=== PATIENT | female | born 1945 | race Caucasian/White ===

== ENCOUNTER 2016-04-26 14:00 | Emergency (ER) | payer MEDICARE, OTHER ==
[~2016-04-26] VITALS: Ht 152.4 cm; Wt 81.1 kg
[~2016-04-26 14:00] MED LIST: ALBU8.5H3 INH; AMLO10TA2 PO; BECL8.7A5 INH; BENA40TA2 PO; ERGO500017 PO; FLUT10.6 INH; FLUT12HF IH; HYDR25TA6 PO; OMEP-110 PO; ONDA4TAB10 PO; SIMV40TA3 PO
[2016-04-26] MEDS ORDERED: NITROGLYCERIN SINGLE TAB 0.4 MG SL ONE (15:27)
[2016-04-26] MEDS ORDERED: SODIUM CHLORIDE FLUSH 10ML SYR IVF ONE (15:30)
[2016-04-26] MEDS ORDERED: MORPHINE SULFATE 4 MG/ML, 1ML IVPush PRN (15:30)
[2016-04-26] MEDS: NITROGLYCERIN SINGLE TAB 0.4 MG SL PRN ×2 (15:35→15:40)
[2016-04-26 16:00] LABS: HEMOGLOBIN 10.9 g/dL (11.7-16.4)
[2016-04-26 16:06] LABS: ASPARTATE AMINO TRANSFERASE 14 U/L (15-37); BLOOD UREA NITROGEN 17 mg/dL (7-18)
[2016-04-26 16:12] LABS: IS PT STATUS REG ER OR PRE ER? YES
[2016-04-26] MEDS ORDERED: MORPHINE SULFATE 4 MG/ML, 1ML ONE (16:33)
[2016-04-26 17:01] VITALS: BP 106/59
== END 2016-04-26 17:03 | disposition home or self-care (01) ==
LOC: ED 15:36
DX: M25.511 Pain in right shoulder (principal); E78.5 Hyperlipidemia, unspecified; K21.9 Gastro-esophageal reflux disease without esophagitis; Z90.49 Acquired absence of other specified parts of digestive tract; Z98.51 Tubal ligation status
CPT/HCPCS: 36415; 71010; 80053; 83880; 84484; 85025; 85610; 85730; 93005; 96374

== ENCOUNTER 2016-06-24 13:19 | Inpatient (IN) | payer OTHER ==
[~2016-06-24] VITALS: Ht 152.4 cm; Wt 83.6 kg
[~2016-06-24 13:19] MED LIST changes: +ASCO10004 PO; +CYAN100074 PO
[2016-06-24 14:00] VITALS: BP 113/69
[2016-06-24] MEDS ORDERED: ENOXAPARIN 40 MG/0.4 ML SQ SCH (14:00)
[2016-06-24] MEDS ORDERED: ONDANSETRON 2MG/ML, 2ML IVPush PRN (14:00)
[2016-06-24] MEDS ORDERED: DOCUSATE 100 MG CAPSULE PO PRN (14:00)
[2016-06-24] MEDS ORDERED: PLEASE ENTER HEIGHT AND WEIGHT MC SCH (14:30)
[2016-06-24] MEDS ORDERED: ERGOCALCIFEROL 50,000 UNIT CAPSULE PO ONE (14:30)
[2016-06-24 14:37] LABS: BLOOD UREA NITROGEN 13 mg/dL (7-18)
[2016-06-24 14:48] LABS: ASPARTATE AMINO TRANSFERASE 13 U/L (15-37); TOTAL IRON BINDING CAPACITY 433 mcg/dL (250-450)
[2016-06-24 15:10] LABS: DIFF TOTAL CELLS COUNTED 100 CELL DIFF
[2016-06-24 15:12] LABS: ANISOCYTOSIS 1+; MICROCYTOSIS 1+; VERIFY COUNTS? YES
[2016-06-24 15:13] LABS: HYPOCHROMIA 1+; OVALOCYTES 1+; POLYCHROMASIA 1+
[2016-06-24] MEDS ORDERED: ALBUTEROL SULFATE 2.5 MG/3 ML HHN PRN (16:00)
[2016-06-24] MEDS: FERROUS SULFATE 325 MG TABLET PO SCH (17:40)
[2016-06-24 18:33] LABS: PT 1:1 MIX 10.7 Seconds (9.6-11.5)
[2016-06-24 20:10] VITALS: BP 109/72
[2016-06-24] MEDS: DESMOPRESSIN 24 MCG in SODIUM CHLORIDE 0.9% 50 ML IV SCH (20:25)
[2016-06-24] MEDS: SIMVASTATIN 40 MG TABLET PO SCH (20:26)
[2016-06-24] MEDS: ACETAMINOPHEN 325 MG TABLET PO PRN (20:27)
[2016-06-24] MEDS ORDERED: BENAZEPRIL 20 MG TABLET PO SCH (21:00)
[2016-06-24] MEDS ORDERED: TEMPLATE NON-FORMULARY MED. (Fluticasone Propionate (Flovent Hfa 44 Mcg/Inh) 2 PUFF) INH SCH (21:00)
[2016-06-24] MEDS ORDERED: AMLODIPINE 5 MG TABLET PO SCH (21:00)
[2016-06-25 01:44] VITALS: BP 102/64
[2016-06-25 06:01] LABS: BLOOD UREA NITROGEN 17 mg/dL (7-18)
[2016-06-25 07:15] VITALS: BP 109/68
[2016-06-25] MEDS: FERROUS SULFATE 325 MG TABLET PO SCH ×2 (08:30→17:59)
[2016-06-25] MEDS: OMEPRAZOLE 20 MG CAPSULE.DR PO SCH (08:30)
[2016-06-25] MEDS: CYANOCOBALAMIN 1,000 MCG TABLET PO SCH (08:30)
[2016-06-25] MEDS: ASCORBIC ACID 500 MG TABLET PO SCH (08:31)
[2016-06-25] MEDS: FLUTICASONE/VILANTEROL 100-25MCG/INH INH SCH (08:38)
[2016-06-25] MEDS ORDERED: HYDROCHLOROTHIAZIDE 25 MG TABLET PO SCH (09:00)
[2016-06-25] MEDS ORDERED: FLUTICASONE FUROATE 200MCG/INH INH SCH (09:00)
[2016-06-25 13:47] VITALS: BP 130/73
[2016-06-25] MEDS: CYCLOPHOSPHAMIDE 50 MG CAP PO SCH (18:03)
[2016-06-25] MEDS: BENAZEPRIL 20 MG TABLET PO SCH (18:08)
[2016-06-25] MEDS: AMLODIPINE 5 MG TABLET PO SCH (21:16)
[2016-06-25] MEDS: SIMVASTATIN 40 MG TABLET PO SCH (21:16)
[2016-06-25 21:21] VITALS: BP 123/74
[2016-06-25] MEDS: DESMOPRESSIN 24 MCG in SODIUM CHLORIDE 0.9% 50 ML IV SCH (21:33)
[2016-06-26 01:41] VITALS: BP 96/62
[2016-06-26 07:15] VITALS: BP 117/70
[2016-06-26] MEDS: CYANOCOBALAMIN 1,000 MCG TABLET PO SCH (08:09)
[2016-06-26] MEDS: OMEPRAZOLE 20 MG CAPSULE.DR PO SCH (08:09)
[2016-06-26] MEDS: FERROUS SULFATE 325 MG TABLET PO SCH ×2 (08:09→17:29)
[2016-06-26] MEDS: FLUTICASONE/VILANTEROL 100-25MCG/INH INH SCH (08:11)
[2016-06-26] MEDS: ASCORBIC ACID 500 MG TABLET PO SCH (08:11)
[2016-06-26] MEDS: ALUMINUM/MAG/SIMETHICONE 30 ML UDC PO PRN (12:49)
[2016-06-26 14:23] VITALS: BP 132/72
[2016-06-26] MEDS: CYCLOPHOSPHAMIDE 50 MG CAP PO SCH (17:29)
[2016-06-26 18:35] VITALS: BP 120/74
[2016-06-26 20:07] VITALS: BP 131/72
[2016-06-26] MEDS: DESMOPRESSIN 24 MCG in SODIUM CHLORIDE 0.9% 50 ML IV SCH (20:08)
[2016-06-26] MEDS: BENAZEPRIL 20 MG TABLET PO SCH (20:08)
[2016-06-26] MEDS: SIMVASTATIN 40 MG TABLET PO SCH (20:09)
[2016-06-26] MEDS: AMLODIPINE 5 MG TABLET PO SCH (20:09)
[2016-06-27 02:39] VITALS: BP 114/71
[2016-06-27] MEDS: ACETAMINOPHEN 325 MG TABLET PO PRN ×2 (05:42→15:34)
[2016-06-27 07:53] VITALS: BP 124/75
[2016-06-27] MEDS: OMEPRAZOLE 20 MG CAPSULE.DR PO SCH (08:25)
[2016-06-27] MEDS: FERROUS SULFATE 325 MG TABLET PO SCH ×2 (08:25→17:09)
[2016-06-27] MEDS: ASCORBIC ACID 500 MG TABLET PO SCH (08:26)
[2016-06-27] MEDS: FLUTICASONE/VILANTEROL 100-25MCG/INH INH SCH (08:26)
[2016-06-27] MEDS: CYANOCOBALAMIN 1,000 MCG TABLET PO SCH (08:26)
[2016-06-27 09:38] LABS: ANISOCYTOSIS 2+; MICROCYTOSIS 1+; OVALOCYTES 1+; POIKILOCYTOSIS 1+; POLYCHROMASIA 1+
[2016-06-27 12:06] LABS: F-VIII INH 1:1 MIX SALINE 61.3 sec (Not Estab.); F-VIII INH 1:1 NP MIX 1HR INC 43.3 sec (22.9-30.2); F-VIII INH NP 37.9 sec (22.9-30.2); F-VIII INH aPTT 47.2 sec (22.9-30.2); FACTOR VIII ACTIVITY <1 % (57-163); FACTOR VIII BETHESDA TITER 205.3 Bethesda (0.0-0.8)
[2016-06-27 12:43] VITALS: BP 138/80
[2016-06-27] MEDS ORDERED: CARISOPRODOL 350 MG TABLET PO PRN (17:00)
[2016-06-27] MEDS: CYCLOPHOSPHAMIDE 50 MG CAP PO SCH (17:09)
[2016-06-27 18:23] VITALS: BP 125/78
[2016-06-27] MEDS: BENAZEPRIL 20 MG TABLET PO SCH (20:06)
[2016-06-27] MEDS: SIMVASTATIN 40 MG TABLET PO SCH (20:30)
[2016-06-27] MEDS: AMLODIPINE 5 MG TABLET PO SCH (20:30)
[2016-06-27] MEDS: DESMOPRESSIN 24 MCG in SODIUM CHLORIDE 0.9% 50 ML IV SCH (20:30)
[2016-06-27] MEDS ORDERED: HYDROmorphone 1 MG/ML, 1ML IV ONE (23:00)
[2016-06-28] VITALS (16 sets, daily range): BP systolic 104–152; BP diastolic 67–81
[2016-06-28] MEDS ORDERED: HYDROcodone/APAP 5/325 TABLET PO PRN ×2 (02:30→08:30)
[2016-06-28] MEDS: HYDROcodone/APAP 5/325 TABLET PO PRN ×2 (04:56→08:32)
[2016-06-28] MEDS: OMEPRAZOLE 20 MG CAPSULE.DR PO SCH (07:16)
[2016-06-28] MEDS: FERROUS SULFATE 325 MG TABLET PO SCH ×2 (07:16→17:26)
[2016-06-28] MEDS: FLUTICASONE/VILANTEROL 100-25MCG/INH INH SCH (09:00)
[2016-06-28 09:24] LABS: DIFF TOTAL CELLS COUNTED 100 CELL DIFF
[2016-06-28 09:26] LABS: ANISOCYTOSIS 2+; HYPOCHROMIA 1+; MICROCYTOSIS 1+; POIKILOCYTOSIS 1+; POLYCHROMASIA 1+; VERIFY COUNTS? YES
[2016-06-28] MEDS: ASCORBIC ACID 500 MG TABLET PO SCH (09:54)
[2016-06-28] MEDS: CYANOCOBALAMIN 1,000 MCG TABLET PO SCH (09:54)
[2016-06-28] MEDS: MORPHINE SULFATE 4 MG/ML, 1ML IVPush PRN ×3 (09:54→22:20)
[2016-06-28] MEDS ORDERED: ANTI INHIBITOR COAGULANT COMP IVPB ONE ×2 (11:30→20:00)
[2016-06-28] MEDS ORDERED: ACETAMINOPHEN 325 MG TABLET PO ONE (11:30)
[2016-06-28] MEDS ORDERED: FUROSEMIDE 20 MG/2 ML IVPush ONE (11:30)
[2016-06-28] MEDS ORDERED: DIPHENHYDRAMINE 50 MG/ML, 1ML IVPush ONE (11:30)
[2016-06-28 12:00] LABS: PROTIME 11.4 Seconds (9.6-11.5)
[2016-06-28] MEDS: ACETAMINOPHEN 325 MG TABLET PO PRN (16:23)
[2016-06-28] MEDS: CYCLOPHOSPHAMIDE 50 MG CAP PO SCH (17:28)
[2016-06-28] MEDS: DESMOPRESSIN 24 MCG in SODIUM CHLORIDE 0.9% 50 ML IV SCH (19:30)
[2016-06-28] MEDS: BENAZEPRIL 20 MG TABLET PO SCH (20:56)
[2016-06-28] MEDS: AMLODIPINE 5 MG TABLET PO SCH (20:56)
[2016-06-28] MEDS: SIMVASTATIN 40 MG TABLET PO SCH (20:56)
[2016-06-29 02:57] VITALS: BP 111/70
[2016-06-29] MEDS: MORPHINE SULFATE 4 MG/ML, 1ML IVPush PRN ×3 (03:39→20:33)
[2016-06-29 06:40] VITALS: BP 117/73
[2016-06-29] MEDS: FERROUS SULFATE 325 MG TABLET PO SCH ×2 (08:46→19:15)
[2016-06-29] MEDS: OMEPRAZOLE 20 MG CAPSULE.DR PO SCH (08:46)
[2016-06-29] MEDS: ASCORBIC ACID 500 MG TABLET PO SCH (08:47)
[2016-06-29] MEDS: CYANOCOBALAMIN 1,000 MCG TABLET PO SCH (08:48)
[2016-06-29] MEDS: FLUTICASONE/VILANTEROL 100-25MCG/INH INH SCH (08:50)
[2016-06-29] MEDS: ACETAMINOPHEN 325 MG TABLET PO PRN (10:48)
[2016-06-29] MEDS ORDERED: ANTI INHIBITOR COAGULANT COMP IVPB SCH (11:00)
[2016-06-29 13:06] LABS: F-VIII INH 1:1 MIX SALINE 66.2 sec (Not Estab.); F-VIII INH NP 35.7 sec (22.9-30.2); F-VIII INH aPTT 46.5 sec (22.9-30.2); FACTOR VIII ACTIVITY <1 % (57-163); FACTOR VIII BETHESDA TITER 63.6 Bethesda (0.0-0.8)
[2016-06-29 13:16] VITALS: BP 145/84
[2016-06-29] MEDS: ONDANSETRON ODT 4 MG PO PRN (15:29)
[2016-06-29] MEDS: CYCLOPHOSPHAMIDE 50 MG CAP PO SCH (17:00)
[2016-06-29 19:12] VITALS: BP 111/72
[2016-06-29] MEDS: AMLODIPINE 5 MG TABLET PO SCH (20:32)
[2016-06-29] MEDS: SIMVASTATIN 40 MG TABLET PO SCH (20:32)
[2016-06-29] MEDS: BENAZEPRIL 20 MG TABLET PO SCH (20:33)
[2016-06-29] MEDS ORDERED: ANTI INHIBITOR COAGULANT COMP IVPB ONE (22:30)
[2016-06-30 03:12] VITALS: BP 104/66
[2016-06-30 05:32] LABS: ASPARTATE AMINO TRANSFERASE 8 U/L (15-37); BLOOD UREA NITROGEN 14 mg/dL (7-18)
[2016-06-30 05:51] LABS: DIFF TOTAL CELLS COUNTED 100 CELL DIFF
[2016-06-30 05:52] LABS: VERIFY COUNTS? YES
[2016-06-30 05:53] LABS: ANISOCYTOSIS 2+; MICROCYTOSIS 1+; POLYCHROMASIA 1+
[2016-06-30 05:55] LABS: HYPOCHROMIA 1+
[2016-06-30 05:56] LABS: PROTIME 11.8 Seconds (9.6-11.5)
[2016-06-30 07:40] VITALS: BP 120/82
[2016-06-30] MEDS: MORPHINE SULFATE 4 MG/ML, 1ML IVPush PRN (08:32)
[2016-06-30] MEDS: FERROUS SULFATE 325 MG TABLET PO SCH ×2 (08:38→17:53)
[2016-06-30] MEDS: CYANOCOBALAMIN 1,000 MCG TABLET PO SCH (08:39)
[2016-06-30] MEDS: ASCORBIC ACID 500 MG TABLET PO SCH (08:39)
[2016-06-30] MEDS: FLUTICASONE/VILANTEROL 100-25MCG/INH INH SCH (08:44)
[2016-06-30] MEDS: OMEPRAZOLE 20 MG CAPSULE.DR PO SCH (08:44)
[2016-06-30 09:15] LABS: DIFF TOTAL CELLS COUNTED 100 CELL DIFF
[2016-06-30 09:23] LABS: ANISOCYTOSIS 2+; HYPOCHROMIA 1+; MICROCYTOSIS 1+; POLYCHROMASIA 1+; VERIFY COUNTS? YES
[2016-06-30] MEDS ORDERED: ANTI INHIBITOR COAGULANT COMP IVPB ONE (10:30)
[2016-06-30 12:06] LABS: F-VIII INH 1:1 MIX SALINE 63.6 sec (Not Estab.); F-VIII INH 1:1 NP MIX 1HR INC 41.5 sec (22.9-30.2); F-VIII INH NP 36.1 sec (22.9-30.2); F-VIII INH aPTT 46.2 sec (22.9-30.2); FACTOR VIII ACTIVITY <1 % (57-163); FACTOR VIII BETHESDA TITER 59.4 Bethesda (0.0-0.8)
[2016-06-30 12:06] LABS: F-VIII INH 1:1 MIX SALINE 65.6 sec (Not Estab.); F-VIII INH 1:1 NP MIX 1HR INC 41.7 sec (22.9-30.2); F-VIII INH NP 34.9 sec (22.9-30.2); F-VIII INH aPTT 44.2 sec (22.9-30.2); FACTOR VIII ACTIVITY <1 % (57-163); FACTOR VIII BETHESDA TITER 59.4 Bethesda (0.0-0.8)
[2016-06-30 13:00] VITALS: BP 124/79
[2016-06-30] MEDS: CYCLOPHOSPHAMIDE 50 MG CAP PO SCH (17:00)
[2016-06-30 19:26] VITALS: BP 120/75
[2016-06-30] MEDS: SIMVASTATIN 40 MG TABLET PO SCH (21:13)
[2016-06-30] MEDS: AMLODIPINE 5 MG TABLET PO SCH (21:13)
[2016-06-30] MEDS: BENAZEPRIL 20 MG TABLET PO SCH (21:13)
[2016-07-01] VITALS (12 sets, daily range): BP systolic 99–128; BP diastolic 60–78
[2016-07-01] MEDS: ANTI INHIBITOR COAGULANT COMP IVPB SCH ×2 (00:15→13:05)
[2016-07-01 06:14] LABS: FIBRINOGEN 216 mg/dL (200-340)
[2016-07-01 06:18] LABS: ASPARTATE AMINO TRANSFERASE 8 U/L (15-37); BLOOD UREA NITROGEN 19 mg/dL (7-18)
[2016-07-01 06:40] LABS: DIFF TOTAL CELLS COUNTED 100 CELL DIFF
[2016-07-01 06:47] LABS: ANISOCYTOSIS 2+; HYPOCHROMIA 1+; MICROCYTOSIS 1+; POLYCHROMASIA 1+; VERIFY COUNTS? YES
[2016-07-01] MEDS: FERROUS SULFATE 325 MG TABLET PO SCH ×2 (08:57→17:48)
[2016-07-01] MEDS: FLUTICASONE/VILANTEROL 100-25MCG/INH INH SCH (08:57)
[2016-07-01] MEDS: OMEPRAZOLE 20 MG CAPSULE.DR PO SCH (08:57)
[2016-07-01] MEDS: CYANOCOBALAMIN 1,000 MCG TABLET PO SCH (08:58)
[2016-07-01] MEDS: ASCORBIC ACID 500 MG TABLET PO SCH (08:58)
[2016-07-01] MEDS ORDERED: DIPHENHYDRAMINE 50 MG/ML, 1ML IVPush ONE (10:30)
[2016-07-01] MEDS ORDERED: ANTI INHIBITOR COAGULANT COMP IVPB ONE (11:30)
[2016-07-01] MEDS ORDERED: DIPHENHYDRAMINE 50 MG/ML, 1ML ONE (14:40)
[2016-07-01] MEDS: CYCLOPHOSPHAMIDE 50 MG CAP PO SCH (17:49)
[2016-07-01] MEDS: BENAZEPRIL 20 MG TABLET PO SCH (22:43)
[2016-07-01] MEDS: SIMVASTATIN 40 MG TABLET PO SCH (22:43)
[2016-07-01] MEDS: AMLODIPINE 5 MG TABLET PO SCH (22:43)
[2016-07-01] MEDS: ALUMINUM/MAG/SIMETHICONE 30 ML UDC PO PRN (23:04)
[2016-07-02] MEDS: ANTI INHIBITOR COAGULANT COMP IVPB SCH ×2 (01:25→14:29)
[2016-07-02 02:29] VITALS: BP 133/70
[2016-07-02 06:46] VITALS: BP 132/77
[2016-07-02] MEDS: HYDROcodone/APAP 5/325 TABLET PO PRN (07:42)
[2016-07-02] MEDS: OMEPRAZOLE 20 MG CAPSULE.DR PO SCH (07:42)
[2016-07-02] MEDS: FLUTICASONE/VILANTEROL 100-25MCG/INH INH SCH (09:00)
[2016-07-02] MEDS: FERROUS SULFATE 325 MG TABLET PO SCH ×2 (09:02→16:34)
[2016-07-02] MEDS: CYANOCOBALAMIN 1,000 MCG TABLET PO SCH (09:02)
[2016-07-02] MEDS: ASCORBIC ACID 500 MG TABLET PO SCH (09:03)
[2016-07-02 12:07] LABS: F-VIII INH 1:1 MIX SALINE 56.9 sec (Not Estab.); F-VIII INH 1:1 NP MIX 1HR INC 39.3 sec (22.9-30.2); F-VIII INH NP 30.4 sec (22.9-30.2); F-VIII INH aPTT 39.7 sec (22.9-30.2); FACTOR VIII BETHESDA TITER 52.3 Bethesda (0.0-0.8)
[2016-07-02 12:07] LABS: F-VIII INH 1:1 MIX SALINE 67.7 sec (Not Estab.); F-VIII INH 1:1 NP MIX 1HR INC 39.6 sec (22.9-30.2); F-VIII INH NP 31.9 sec (22.9-30.2); F-VIII INH aPTT 44.2 sec (22.9-30.2); FACTOR VIII ACTIVITY <1 % (57-163); FACTOR VIII BETHESDA TITER 60.1 Bethesda (0.0-0.8)
[2016-07-02 12:24] VITALS: BP 149/82
[2016-07-02] MEDS: CYCLOPHOSPHAMIDE 50 MG CAP PO SCH (16:30)
[2016-07-02 19:05] VITALS: BP 136/77
[2016-07-02] MEDS: AMLODIPINE 5 MG TABLET PO SCH (19:59)
[2016-07-02] MEDS: BENAZEPRIL 20 MG TABLET PO SCH (19:59)
[2016-07-02] MEDS: SIMVASTATIN 40 MG TABLET PO SCH (19:59)
[2016-07-03 01:21] VITALS: BP 138/76
[2016-07-03] MEDS: ANTI INHIBITOR COAGULANT COMP IVPB SCH ×2 (02:26→14:04)
[2016-07-03 08:05] VITALS: BP 145/79
[2016-07-03] MEDS: OMEPRAZOLE 20 MG CAPSULE.DR PO SCH (08:13)
[2016-07-03] MEDS: CYANOCOBALAMIN 1,000 MCG TABLET PO SCH (08:14)
[2016-07-03] MEDS: FERROUS SULFATE 325 MG TABLET PO SCH ×2 (08:14→17:07)
[2016-07-03] MEDS: ASCORBIC ACID 500 MG TABLET PO SCH (08:14)
[2016-07-03] MEDS: FLUTICASONE/VILANTEROL 100-25MCG/INH INH SCH (08:14)
[2016-07-03 11:06] LABS: F-VIII INH 1:1 NP MIX 1HR INC 41.6 sec (22.9-30.2); F-VIII INH NP 31.6 sec (22.9-30.2); F-VIII INH aPTT 41.8 sec (22.9-30.2)
[2016-07-03] MEDS: CYCLOPHOSPHAMIDE 50 MG CAP PO SCH (11:13)
[2016-07-03 15:49] VITALS: BP 146/84
[2016-07-03 18:48] VITALS: BP 131/77
[2016-07-03] MEDS: BENAZEPRIL 20 MG TABLET PO SCH (21:22)
[2016-07-03] MEDS: AMLODIPINE 5 MG TABLET PO SCH (21:22)
[2016-07-03] MEDS: SIMVASTATIN 40 MG TABLET PO SCH (21:22)
[2016-07-04 02:22] VITALS: BP 165/81
[2016-07-04] MEDS: ANTI INHIBITOR COAGULANT COMP IVPB SCH ×2 (02:23→14:41)
[2016-07-04 08:39] LABS: POLYCHROMASIA 1+
[2016-07-04 08:42] LABS: ANISOCYTOSIS 2+; MICROCYTOSIS 2+
[2016-07-04] MEDS: FERROUS SULFATE 325 MG TABLET PO SCH ×2 (09:19→16:39)
[2016-07-04] MEDS: FLUTICASONE/VILANTEROL 100-25MCG/INH INH SCH (09:19)
[2016-07-04] MEDS: OMEPRAZOLE 20 MG CAPSULE.DR PO SCH (09:19)
[2016-07-04] MEDS: CYANOCOBALAMIN 1,000 MCG TABLET PO SCH (09:19)
[2016-07-04] MEDS: ASCORBIC ACID 500 MG TABLET PO SCH (09:20)
[2016-07-04] MEDS: CYCLOPHOSPHAMIDE 50 MG CAP PO SCH (09:42)
[2016-07-04] MEDS ORDERED: FUROSEMIDE 40 MG TABLET PO SCH (10:00)
[2016-07-04 14:30] VITALS: BP 136/80
[2016-07-04 19:03] VITALS: BP 131/72
[2016-07-04] MEDS: AMLODIPINE 5 MG TABLET PO SCH (20:38)
[2016-07-04] MEDS: BENAZEPRIL 20 MG TABLET PO SCH (20:38)
[2016-07-04] MEDS: SIMVASTATIN 40 MG TABLET PO SCH (20:38)
[2016-07-05] MEDS ORDERED: ANTI INHIBITOR COAGULANT COMP IVPB ONE (02:30)
[2016-07-05 02:43] VITALS: BP 147/82
[2016-07-05 08:10] VITALS: BP 157/82
[2016-07-05] MEDS: HYDROcodone/APAP 5/325 TABLET PO PRN (08:26)
[2016-07-05] MEDS: FERROUS SULFATE 325 MG TABLET PO SCH ×2 (08:27→17:21)
[2016-07-05] MEDS: OMEPRAZOLE 20 MG CAPSULE.DR PO SCH (08:27)
[2016-07-05] MEDS: CYANOCOBALAMIN 1,000 MCG TABLET PO SCH (08:27)
[2016-07-05] MEDS: FLUTICASONE/VILANTEROL 100-25MCG/INH INH SCH (08:27)
[2016-07-05] MEDS: ASCORBIC ACID 500 MG TABLET PO SCH (08:28)
[2016-07-05] MEDS: CYCLOPHOSPHAMIDE 50 MG CAP PO SCH (08:29)
[2016-07-05 14:28] VITALS: BP 148/81
[2016-07-05] MEDS: ONDANSETRON ODT 4 MG PO PRN (18:15)
[2016-07-05 20:17] VITALS: BP 113/71
[2016-07-05] MEDS: BENAZEPRIL 20 MG TABLET PO SCH (20:21)
[2016-07-05] MEDS: AMLODIPINE 5 MG TABLET PO SCH (20:24)
[2016-07-05] MEDS: SIMVASTATIN 40 MG TABLET PO SCH (20:24)
[2016-07-06 03:37] VITALS: BP 117/66
[2016-07-06 03:42] LABS: FIBRINOGEN 216 mg/dL (200-340)
[2016-07-06 07:36] VITALS: BP 115/73
[2016-07-06] MEDS: OMEPRAZOLE 20 MG CAPSULE.DR PO SCH (07:41)
[2016-07-06] MEDS: FERROUS SULFATE 325 MG TABLET PO SCH ×2 (08:42→18:27)
[2016-07-06] MEDS: FLUTICASONE/VILANTEROL 100-25MCG/INH INH SCH (08:42)
[2016-07-06] MEDS: ASCORBIC ACID 500 MG TABLET PO SCH (08:42)
[2016-07-06] MEDS: CYANOCOBALAMIN 1,000 MCG TABLET PO SCH (08:43)
[2016-07-06] MEDS: CYCLOPHOSPHAMIDE 50 MG CAP PO SCH (08:46)
[2016-07-06 14:00] VITALS: BP 137/84
[2016-07-06] MEDS: AMLODIPINE 5 MG TABLET PO SCH (19:31)
[2016-07-06] MEDS: BENAZEPRIL 20 MG TABLET PO SCH (19:31)
[2016-07-06] MEDS: SIMVASTATIN 40 MG TABLET PO SCH (19:31)
[2016-07-06 19:40] VITALS: BP 136/83
[2016-07-07 02:08] VITALS: BP 134/81
[2016-07-07 06:02] LABS: FIBRINOGEN 185 mg/dL (200-340)
[2016-07-07 06:16] LABS: ASPARTATE AMINO TRANSFERASE 6 U/L (15-37); BLOOD UREA NITROGEN 20 mg/dL (7-18)
[2016-07-07 06:48] VITALS: BP 149/80
[2016-07-07] MEDS: FERROUS SULFATE 325 MG TABLET PO SCH ×2 (08:00→17:53)
[2016-07-07] MEDS: HYDROcodone/APAP 5/325 TABLET PO PRN (08:00)
[2016-07-07] MEDS: OMEPRAZOLE 20 MG CAPSULE.DR PO SCH (08:01)
[2016-07-07] MEDS: ASCORBIC ACID 500 MG TABLET PO SCH (08:01)
[2016-07-07] MEDS: CYANOCOBALAMIN 1,000 MCG TABLET PO SCH (08:01)
[2016-07-07] MEDS: FLUTICASONE/VILANTEROL 100-25MCG/INH INH SCH (08:02)
[2016-07-07] MEDS: CYCLOPHOSPHAMIDE 50 MG CAP PO SCH (08:55)
[2016-07-07 14:00] VITALS: BP 140/82
[2016-07-07 19:08] VITALS: BP 127/76
[2016-07-07] MEDS: SIMVASTATIN 40 MG TABLET PO SCH (20:02)
[2016-07-07] MEDS: BENAZEPRIL 20 MG TABLET PO SCH (20:03)
[2016-07-07] MEDS: AMLODIPINE 5 MG TABLET PO SCH (20:03)
[2016-07-08 01:15] VITALS: BP 130/81
[2016-07-08 08:01] VITALS: BP 150/79
[2016-07-08] MEDS: FLUTICASONE/VILANTEROL 100-25MCG/INH INH SCH (09:00)
[2016-07-08] MEDS: OMEPRAZOLE 20 MG CAPSULE.DR PO SCH (09:38)
[2016-07-08] MEDS: FERROUS SULFATE 325 MG TABLET PO SCH ×2 (09:39→17:44)
[2016-07-08] MEDS: CYANOCOBALAMIN 1,000 MCG TABLET PO SCH (09:39)
[2016-07-08] MEDS: ASCORBIC ACID 500 MG TABLET PO SCH (09:40)
[2016-07-08] MEDS: CYCLOPHOSPHAMIDE 50 MG CAP PO SCH (09:50)
[2016-07-08 14:29] VITALS: BP 138/82
[2016-07-08 19:10] VITALS: BP 120/81
[2016-07-08] MEDS: AMLODIPINE 5 MG TABLET PO SCH (22:00)
[2016-07-08] MEDS: SIMVASTATIN 40 MG TABLET PO SCH (22:00)
[2016-07-08] MEDS: BENAZEPRIL 20 MG TABLET PO SCH (22:01)
[2016-07-09 04:15] VITALS: BP 150/86
[2016-07-09 05:43] LABS: FIBRINOGEN 107 mg/dL (200-340)
[2016-07-09 06:50] VITALS: BP 153/82
[2016-07-09] MEDS: OMEPRAZOLE 20 MG CAPSULE.DR PO SCH (08:09)
[2016-07-09] MEDS: CYANOCOBALAMIN 1,000 MCG TABLET PO SCH (08:09)
[2016-07-09] MEDS: FERROUS SULFATE 325 MG TABLET PO SCH (08:09)
[2016-07-09] MEDS: ASCORBIC ACID 500 MG TABLET PO SCH (08:10)
[2016-07-09] MEDS: FLUTICASONE/VILANTEROL 100-25MCG/INH INH SCH (08:16)
[2016-07-09] MEDS ORDERED: CYCLOPHOSPHAMIDE 50 MG CAP PO SCH (09:00)
[2016-07-09 11:06] LABS: F-VIII INH 1:1 MIX SALINE 56.1 sec (Not Estab.); F-VIII INH 1:1 NP MIX 1HR INC 40.2 sec (22.9-30.2); F-VIII INH NP 32.3 sec (22.9-30.2); F-VIII INH aPTT 45.9 sec (22.9-30.2); FACTOR VIII BETHESDA TITER 1.9 Bethesda (0.0-0.8)
[2016-07-09 11:06] LABS: F-VIII INH 1:1 NP MIX 1HR INC 40.5 sec (22.9-30.2); F-VIII INH aPTT 41.8 sec (22.9-30.2); FACTOR VIII BETHESDA TITER 31.8 Bethesda (0.0-0.8)
[2016-07-09] MEDS ORDERED: PRED20TA PO (12:13)
[2016-07-09] MEDS ORDERED: CYCL50CA3 PO (12:13)
[2016-07-09 12:27] VITALS: BP 144/88
[2016-07-12 16:07] LABS: F-VIII INH 1:1 MIX SALINE 60.6 sec (Not Estab.); F-VIII INH 1:1 NP MIX 1HR INC 38.6 sec (22.9-30.2); F-VIII INH NP 31.9 sec (22.9-30.2); F-VIII INH aPTT 44.7 sec (22.9-30.2); FACTOR VIII BETHESDA TITER 48.7 Bethesda (0.0-0.8)
[2016-07-12 16:07] LABS: F-VIII INH 1:1 MIX SALINE 71.5 sec (Not Estab.); F-VIII INH 1:1 NP MIX 1HR INC 38.2 sec (22.9-30.2); F-VIII INH aPTT 44.6 sec (22.9-30.2); FACTOR VIII BETHESDA TITER 47.6 Bethesda (0.0-0.8)
== END 2016-07-09 14:33 | disposition home or self-care (01) | DRG 813 ==
LOC: 3NW 13:19
PROVIDERS: ADMIT Internal Medicine Hematology & Oncology
PROC: 30233N1 Transfusion of Nonautologous Red Blood Cells into Peripheral Vein, Percutaneous Approach (ICD-10-PCS; 2016-06-28)
PROC: 30233N1 Transfusion of Nonautologous Red Blood Cells into Peripheral Vein, Percutaneous Approach (ICD-10-PCS; principal; 2016-07-01)
DX: D66 Hereditary factor VIII deficiency (principal); D62 Acute posthemorrhagic anemia; M25.00 Hemarthrosis, unspecified joint; S70.11XA Contusion of right thigh, initial encounter; D50.9 Iron deficiency anemia, unspecified; K22.70 Barrett's esophagus without dysplasia; I10 Essential (primary) hypertension; K21.9 Gastro-esophageal reflux disease without esophagitis; E55.9 Vitamin D deficiency, unspecified; D72.829 Elevated white blood cell count, unspecified; E78.00 Pure hypercholesterolemia, unspecified; E78.5 Hyperlipidemia, unspecified; K44.9 Diaphragmatic hernia without obstruction or gangrene; J45.909 Unspecified asthma, uncomplicated; M19.90 Unspecified osteoarthritis, unspecified site; R79.1 Abnormal coagulation profile; F32.9 Major depressive disorder, single episode, unspecified; R23.3 Spontaneous ecchymoses; M25.451 Effusion, right hip; S70.01XA Contusion of right hip, initial encounter; X58.XXXA Exposure to other specified factors, initial encounter; T38.0X5A Adverse effect of glucocorticoids and synthetic analogues, initial encounter; Z82.3 Family history of stroke; Z90.49 Acquired absence of other specified parts of digestive tract; Z90.89 Acquired absence of other organs; Z98.51 Tubal ligation status; Z88.2 Allergy status to sulfonamides; Z91.048 Other nonmedicinal substance allergy status; Z82.5 Family history of asthma and other chronic lower respiratory diseases; Y93.89 Activity, other specified; Y92.89 Other specified places as the place of occurrence of the external cause; Y99.8 Other external cause status
CPT/HCPCS: 36415; 70450; 74176; 80048; 80053; 82247; 82248; 82728; 83010; 83540; 83550; 83615; 85014; 85018; 85025; 85045; 85049; 85240; 85250; 85270; 85280; 85335; 85379; 85384; 85610; 85670; 85730; 85732; 86850; 86900; 86923; J1170; J2405; J2597; J7198; Q0162; J1200; J1940; J7512; J8530; P9016

== ENCOUNTER 2016-07-25 11:47 | Emergency (ER) | payer OTHER ==
[~2016-07-25] VITALS: Ht 152.4 cm; Wt 80.0 kg
[~2016-07-25 11:47] MED LIST changes: +CYCL50CA3 PO; +PRED20TA PO
[2016-07-25] MEDS ORDERED: OXYcodone/APAP 5/325MG TABLET PO ONE (13:00)
[2016-07-25] MEDS ORDERED: OXYcodone/APAP 5/325MG TABLET ONE (13:06)
[2016-07-25 13:35] LABS: BLOOD UREA NITROGEN 16 mg/dL (7-18)
[2016-07-25 14:05] LABS: DIFF TOTAL CELLS COUNTED 100 CELL DIFF
[2016-07-25 14:08] LABS: VERIFY COUNTS? YES
[2016-07-25 14:09] LABS: ANISOCYTOSIS 1+
[2016-07-25 14:10] LABS: OVALOCYTES 1+; POIKILOCYTOSIS 1+
[2016-07-25 14:24] VITALS: BP 114/72
== END 2016-07-25 15:56 | disposition home or self-care (01) ==
LOC: ED 13:03
DX: M79.651 Pain in right thigh (principal); K21.9 Gastro-esophageal reflux disease without esophagitis; I10 Essential (primary) hypertension; E78.5 Hyperlipidemia, unspecified; J45.909 Unspecified asthma, uncomplicated; Z90.49 Acquired absence of other specified parts of digestive tract; Z98.51 Tubal ligation status
CPT/HCPCS: 36415; 80048; 82040; 85025; 85240; 85610; 85730; 85732; 99285

== ENCOUNTER → 2016-10-23 | Outpatient (CLI) | payer OTHER ==
[~2016-10-23] MED LIST changes: -ALBU8.5H3 INH; +ALBU8.5H8 INH; -BECL8.7A5 INH; +BECL8.7A7 INH
== END | disposition home or self-care (01) ==
LOC: CFH 10:45
PROVIDERS: ATTEND Surgery
DX: Z13.820 Encounter for screening for osteoporosis (principal); E04.2 Nontoxic multinodular goiter; E21.0 Primary hyperparathyroidism; N95.9 Unspecified menopausal and perimenopausal disorder
CPT/HCPCS: 76536; 77080

== ENCOUNTER → 2016-11-05 | Outpatient (CLI) | payer OTHER | END | disposition home or self-care (01) | LOC: PETCFH 09:17 | PROVIDERS: ATTEND Surgery | DX: E21.0 Primary hyperparathyroidism (principal) | CPT/HCPCS: 78070; A9500 ==

== ENCOUNTER → 2017-02-10 | Outpatient (CLI) | payer OTHER ==
[~2017-02-10] MED LIST changes: +OMNIPAQUE 350 MG/ML, 100ML BOTTLE ONE
== END ==
LOC: CFH 08:57
PROVIDERS: ATTEND Surgery
DX: E21.0 Primary hyperparathyroidism (principal)
CPT/HCPCS: 70498; 82565; Q9967

== ENCOUNTER 2019-08-21 18:34 | Emergency (ER) | payer MEDICARE ==
[~2019-08-21] VITALS: Ht 152.4 cm; Wt 90.0 kg
[~2019-08-21 18:34] MED LIST changes: -AMLO10TA2 PO; +AMLO10TA8 PO; -BENA40TA2 PO; +BENA40TA3 PO; -OMNIPAQUE 350 MG/ML, 100ML BOTTLE ONE; +SIMV40TA20 PO; -SIMV40TA3 PO
--- NOTE | 2019-08-21 18:39 | NUR ---
LUIS. REPORT RECEIVED FROM EMS. PT WAS CONSTIPATED AND TOOK LAXATIVE AT HOME, THEN PT C/O CRAMPING PAIN WITH NAUSEA. PT HAD SMALL BOWEL MOVEMENT TODAY. PT TOOK 4MG ZOFRAN PO AT HOME FOR NAUSEA. PT'S AOX4. RESPS EVEN AND UNLABORED. BP/SPO2 MONITORS IN PLACE. CALL LIGHT WITHIN REACH.
--- NOTE | 2019-08-21 18:52 | NUR ---
REPORT GIVEN TO ELIESER SALAZAR.
--- NOTE | 2019-08-21 18:53 | NUR ---
Report received from MARTIN Roberts. This RN to assume care.
[2019-08-21 19:16] VITALS: BP 135/70
[2019-08-21] MEDS ORDERED: ONDANSETRON 2MG/ML, 2ML ONE (19:18)
[2019-08-21 19:19] LABS: BASOPHILS # (AUTO) 0.05 x10^3/uL (0-0.1); BASOPHILS % (AUTO) 0 % (0-1); EOSINOPHILS # (AUTO) 0.14 x10^3/uL (0-0.4); EOSINOPHILS % (AUTO) 1 % (1-7); LYMPHOCYTES % (AUTO) 8 % (22-44); MD NO; MEAN CORPUSCULAR HEMOGLOBIN 27.5 pg (27.0-34.8); MEAN CORPUSCULAR HGB CONC 32.9 g/dL (32.4-35.8); MEAN CORPUSCULAR VOLUME 83.5 fL (80-100); MEAN PLATELET VOLUME 7.6 fL (7.4-10.4); MONOCYTES % (AUTO) 6 % (2-9); NEUTROPHILS # (AUTO) 9.27 x10^3/uL (1.8-6.8); NEUTROPHILS % (AUTO) 85 % (42-75); PLATELET COUNT 198 x10^3/uL (130-400); RED BLOOD COUNT 5.85 x10^6/uL (3.82-5.3); RED CELL DISTRIBUTION WIDTH 16.1 % (9.6-15.2)
[2019-08-21 19:25] LABS: ALBUMIN 3.8 g/dL (3.4-5.0); ANION GAP 10 mmol/L (5-15); CALCIUM 9.6 mg/dL (8.5-10.1); CHLORIDE 106 mmol/L (98-107); CREATININE 0.93 mg/dL (0.55-1.02)
[2019-08-21] MEDS ORDERED: ONDANSETRON 2MG/ML, 2ML IVPush ONE (19:30)
--- NOTE | 2019-08-21 20:03 | NUR ---
Discharge instructions given. All questions and concerns addressed. Patient ambulatory with a steady gait. Belongings with patient.
[2019-08-22] MEDS ORDERED: ALBU8.5H8 INH (06:20)
[2019-08-22] MEDS ORDERED: BUDE10.22 INH (06:20)
[2019-08-23] MEDS ORDERED: DOCU100C33 PO (09:06)
== END 2019-08-21 20:04 | disposition home or self-care (01) ==
LOC: ED 19:04
DX: R42 Dizziness and giddiness (principal); R10.30 Lower abdominal pain, unspecified; K59.00 Constipation, unspecified; R11.0 Nausea; R94.31 Abnormal electrocardiogram [ECG] [EKG]; I10 Essential (primary) hypertension; K21.9 Gastro-esophageal reflux disease without esophagitis; E78.00 Pure hypercholesterolemia, unspecified; Z90.89 Acquired absence of other organs; Z90.49 Acquired absence of other specified parts of digestive tract
CPT/HCPCS: 36415; 80048; 82040; 85025; 93005; 96374; 99284; J2405